=== PATIENT | male | born 1955 | race Caucasian/White ===

== ENCOUNTER 2016-11-16 05:45 | Inpatient (IN) | payer OTHER ==
--- NOTE | 2016-11-15 13:24 | HPE ---
DATE OF SCHEDULED ADMISSION: 11/16/2016 CHIEF COMPLAINT: Sigmoid colon cancer. HISTORY OF PRESENT ILLNESS: The patient is a 61-year-old male who presents with a malignant polyp at 30-35 cm. He has not had any diarrhea. No constipation. No bright red blood per rectum. Essentially there was an adenocarcinoma, this was moderately differentiated in the background of a villous adenoma with positive margins on biopsy. PAST MEDICAL HISTORY: Significant for history of hypertension, history of hypercholesterolemia. MEDICATIONS: Include - Valsartan - hydrochlorothiazide - amlodipine - bisoprolol PHYSICAL EXAMINATION: The patient is a 61-year-old male who looks stated age. HEENT: Reveals an atraumatic, normocephalic head with extraocular movements intact. Pupils are equal and reactive to light. Sclerae nonicteric. Oropharynx clear without exudate or lesions. NECK: Supple without adenopathy. LUNGS: Clear to auscultation without crackles, wheezes or rhonchi. HEART: Regular without murmur. ABDOMEN: Soft, nondistended, nontender. No hepatosplenomegaly is appreciated. EXTREMITIES: Warm, well-perfused. IMPRESSION AND PLAN: 1. The patient has malignant colon cancer. We did do a CT scan for him and this CT scan was negative for adenopathy/metastatic disease. He also had a carcinoembryonic antigen (CEA), this was slightly elevated at 3.9. He has been optimized from a medical standpoint from Dr. Bauer and now presents for additional treatment/for this sigmoid colon cancer. The plan is for a laparoscopic assisted sigmoid colectomy with coloproctostomy. Of course this depends on the location of the polyp if this is indeed in the sigmoid colon, it has been tattooed and it is at 35 cm which suggests mid sigmoid. The patient understands that he will receive some preoperative ureteral stents. He will be placed nothing by mouth. He is given a mechanical as well as antibiotic bowel preparation preoperatively as well as IV antibiotics intraoperatively. He understands the risks as well as benefits associated with the operative intervention, those including but not limited to infection, bleeding, damage to surrounding structures including bowel, bladder, nerve, ureters, kidney, spleen and possible colostomy placement, possible anastomotic leak and wound infections. Also possible need for open operative intervention. The patient understands and would like to proceed with operative intervention as scheduled for 11/16/2016.
[~2016-11-16] VITALS: Ht 170.2 cm; Wt 107.5 kg
[~2016-11-16 05:45] MED LIST: AMLO10TA2 PO; ASPI1TAB PO; BISO5TAB5 PO; VALS160T PO
[2016-11-16] MEDS ORDERED: LevoFLOXacin 500 MG in APPROPRIATE DILUENT 1 EA IV ONE (06:00)
[2016-11-16] MEDS ORDERED: LR 1,000 ML IV SCH ×2 (06:00→14:00)
[2016-11-16] MEDS ORDERED: ERYT25TA PO (06:49)
[2016-11-16] MEDS ORDERED: NEOM50TA PO (06:50)
[2016-11-16] MEDS ORDERED: BUPIVACAINE/EPIN 0.25% 30 ML VIAL As Ordered ONE (07:12)
[2016-11-16] MEDS ORDERED: PROPOFOL 200 MG/20 ML VIAL As Ordered ONE ×2 (09:04→13:02)
[2016-11-16] MEDS ORDERED: LIDOCAINE 2% INJ 100 MG/5 ML SDV (FOR ANES.) As Ordered ONE (09:04)
[2016-11-16] MEDS ORDERED: HYDROmorphone HCL 2 MG/ML 1ML VIAL (J1170) As Ordered ONE (09:04)
[2016-11-16] MEDS ORDERED: fentaNYL 250 MCG/5 ML INJECTION (J3010) As Ordered ONE (09:04)
[2016-11-16] MEDS ORDERED: dexameTHASONE 4 MG/ML 1ML VIAL (J1100) As Ordered ONE (09:04)
[2016-11-16] MEDS ORDERED: ONDANSETRON 4MG/2ML VIAL (J2405) As Ordered ONE (09:04)
[2016-11-16] MEDS ORDERED: ROCURONIUM BROMIDE 50 MG/5 ML VIAL As Ordered ONE ×2 (09:04→10:15)
[2016-11-16] MEDS ORDERED: MIDAZOLAM INJ 2 MG/2 ML VIAL (J2250) As Ordered ONE (09:04)
[2016-11-16] MEDS ORDERED: PHENYLephrine HCL 500 MCG/5 ML (100MCG/ML) SYRINGE (J2370) As Ordered ONE (09:04)
[2016-11-16] MEDS ORDERED: ePHEDrine SULFATE 25 MG/5 ML(5MG/ML) SYRINGE As Ordered ONE ×2 (09:04→09:24)
[2016-11-16] MEDS ORDERED: BUPIVACAINE/EPIN 0.25% 30 ML VIAL XX ONE (09:47)
[2016-11-16] MEDS ORDERED: BUPIVACAINE LIPOSOME/PF 1.3% 20ML (266MG/20ML) VIAL (EXPAREL) As Ordered ONE (11:53)
[2016-11-16] MEDS ORDERED: BUPIVACAINE HCL 0.25% 30 ML VIAL As Ordered ONE (11:53)
[2016-11-16] MEDS ORDERED: KETOROLAC 60 MG/2 ML VIAL (J1885) As Ordered ONE (12:08)
[2016-11-16] MEDS ORDERED: fentaNYL 100 MCG/2 ML INJECTION (J3010) As Ordered ONE (12:31)
[2016-11-16] MEDS ORDERED: NS 1,000 ML IV SCH (12:48)
[2016-11-16] MEDS ORDERED: MORPHINE PCA 1MG/ML 100ML CADD As Ordered ONE (12:50)
[2016-11-16] MEDS ORDERED: NALBUPHINE HCL 10 MG/ML AMP (J2300) IV PRN (13:00)
[2016-11-16] MEDS ORDERED: NALOXONE INJ 0.4 MG/1 ML VIAL (J2310) IV PRN (13:00)
[2016-11-16] MEDS ORDERED: ONDANSETRON 4MG/2ML VIAL (J2405) IV PRN ×3 (13:00→14:00)
[2016-11-16] MEDS ORDERED: MORPHINE PCA 1MG/ML 100ML CADD IV PRN (13:00)
[2016-11-16] MEDS ORDERED: IPRATROPIUM 0.5MG/ALBUTEROL 2.5MG INH SOL UD 3ML (DUONEB)(J7620) NEB PRN (13:00)
[2016-11-16] MEDS ORDERED: METOCLOPRAMIDE INJ 10MG/2ML VIAL (J2765) IV PRN ×2 (13:00→14:00)
[2016-11-16] MEDS ORDERED: diphenhydrAMINE INJ 50MG/ML VIAL (J1200) IV PRN (13:00)
[2016-11-16] MEDS ORDERED: EPIDURAL/PCA KEYS XX PRN (13:00)
[2016-11-16] MEDS ORDERED: PROMETHAZINE INJ 25 MG/ML VIAL (J2550) IV PRN (13:00)
[2016-11-16] MEDS ORDERED: BUPIVACAINE HCL 0.25% 30 ML VIAL XX ONE (13:06)
[2016-11-16] MEDS ORDERED: BUPIVACAINE LIPOSOME/PF 1.3% 20ML (266MG/20ML) VIAL (EXPAREL) XX ONE (13:07)
[2016-11-16] MEDS ORDERED: NALOXONE INJ 0.4 MG/1 ML VIAL (J2310) As Ordered ONE (13:47)
[2016-11-16] MEDS ORDERED: MEPERIDINE INJ 25 MG/ML VIAL (J2175) IV PRN (14:00)
[2016-11-16] MEDS ORDERED: fentaNYL 100 MCG/2 ML INJECTION (J3010) IV PRN (14:00)
[2016-11-16] MEDS: IPRATROPIUM 0.5MG/ALBUTEROL 2.5MG INH SOL UD 3ML (DUONEB)(J7620) NEB SCH ×2 (14:00→19:36)
[2016-11-16] MEDS ORDERED: PERCOCET 5MG/325MG TAB PO PRN (14:00)
--- NOTE | 2016-11-16 14:39 | RO ---
DATE OF PROCEDURE: 11/16/2016 PREPROCEDURE DIAGNOSIS: Sigmoid colon cancer. POSTPROCEDURE DIAGNOSIS: Sigmoid colon cancer. PROCEDURE: 1. Laparoscopic sigmoid colectomy with coloproctostomy. 2. Laparoscopic splenic flexure takedown. SURGEON: Abdirizak Castro MD NUT TAPPER: Dr. Vazquez INDICATIONS FOR NUT TAPPER: Dr. Vazquez provided exposure, retraction and assistance with excision of the sigmoid colon and performed the rectal portion of the anastomosis. ESTIMATED BLOOD LOSS: Minimal. FLUIDS: Crystalloid. BRIEF PROCEDURE SUMMARY: The patient was brought to the operating room and was given general anesthesia. After adequate anesthesia was established, as well as preoperative antibiotics had been given, the patient was prepped and draped in sterile fashion. Next, a supraumbilical incision was made with skin knife. Blunt dissection was carried down to fascia. Fascia was grasped, elevated and a Veress needle placed into the abdominal cavity and insufflated to 15 mm of pressure. A dilating 10 mm trocar was placed at the supraumbilical site and under direct visualization, two 5 mm trocars were placed along the left-hand side and then a 12, as well as 5 mm right lateral trocars were placed. The tattoo in the sigmoid colon actually was quite visible and was seen just in the mid to distal sigmoid colon itself. Next, the white line of Toldt laterally was taken down with harmonic scalpel. This continued inferiorly down to the peritoneal reflection on the left-hand side and this was repeated on the right-hand side. After adequate mobilization laterally with a combination of blunt dissection, as well as the harmonic scalpel, this continued along the loose areolar plane for quite awhile and eventually the dissection continued from the left side. Then I felt that this had been mobilized off the vascular structures in this area quite well. Thus, the right side of the colon needed to be further developed and getting into an avascular plane and was able to get posterior to the rectal vessels. Proximal to the sigmoid vessels, I was able to make a transmesenteric opening with harmonic scalpel and dissected back towards the vessels itself. Inferiorly, once again this was developed such that I could make a nice room through the loose areolar plane and eventually made an opening such that the vessels could be identified better at this time. Also, an opening transmesenteric more distal to the carbon spot was made with harmonic scalpel. The bowel was taken with an echelon 60 green load. Then the mesentery of this was taken with echelon 60 white load. Same was true with the sigmoid vessel, was taken with echelon 60 white load and good hemostasis was achieved. The area was copiously irrigated until clear. Next, dissection continued up along the white line of Toldt to some extent in this area, and then the patient was placed in a head-up position. The patient had a very thickened omentum, much thicker than a typical omentum. I did not see any carcinomatosis. I did not see any other abnormalities. No significant inflammation, although I had concerns that he may have had some episode of diverticulitis in the past in the transverse colon. In any case, the omentum was taken off the transverse colon along the avascular plane using the Harmonic scalpel but because of the significant thickening of the colon and adhesions to the colon itself, it was difficult to develop an easy plane in this area. Eventually, the splenic flexure was mobilized with the harmonic scalpel and the colon was mobilized off Gerota's. This continued inferiorly. Once the splenic flexure was adequately mobilized and the colon off the Gerota's fascia/kidney was adequately mobilized, the clips were placed on the bowel and that seemed to reach the pelvis adequately and without tension. Then an abdominal incision was made with skin knife. Electrocautery was used to cut through dermis, underlying subcutaneous tissue down through the fascia. The portion of bowel was brought out through this incision. Mesentery was taken with an echelon white load and an EEA stapler 29 was placed in the proximal portion of the bowel. The bowel was resected using a JUD stapler and the anvil was brought out just proximal to the anastomosis. Next, this was returned to the abdominal cavity and the midline was closed with a separate closure and closed with #1 Vicryl in a running manner. The abdomen was reinsufflated at this time and an end-to-end anastomosis was created under direct visualization. This was irrigated copiously until clear and was insufflated under water revealing no air leak. The right lower quadrant 12 mm trocar site was closed with a Ananda #0 Vicryl and a #19 Mohan-Valerio was left in the bed of dissection in the pelvis. All incisions were closed with padilla after the midline was irrigated until clear, and the patient was awakened, extubated, brought to recovery room awake, alert and hemodynamically stable. Sponge and needle counts correct times two.
[2016-11-16] MEDS ORDERED: ALBUTEROL SULFATE 2.5 MG/0.5 ML INH NEB SOLN As Ordered ONE (14:59)
[2016-11-16 15:55] VITALS: BP 115/69
[2016-11-16 16:25] VITALS: BP 117/66
[2016-11-16] MEDS: LR 1,000 ML IV SCH (17:05)
[2016-11-16 17:25] VITALS: BP 112/62
[2016-11-16] MEDS ORDERED: KETOROLAC 30 MG/ML VIAL (J1885) IV PRN (18:00)
[2016-11-16 18:25] VITALS: BP 124/68
[2016-11-16 19:25] VITALS: BP 131/76
[2016-11-16 20:30] VITALS: BP 127/68
[2016-11-16] MEDS: ALVIMOPAN 12 MG CAPSULE (ENTEREG) PO SCH (21:11)
[2016-11-17] VITALS (7 sets, daily range): BP systolic 113–156; BP diastolic 64–82; O2SAT 96
[2016-11-17] MEDS: LR 1,000 ML IV SCH ×4 (01:58→20:41)
[2016-11-17] MEDS: IPRATROPIUM 0.5MG/ALBUTEROL 2.5MG INH SOL UD 3ML (DUONEB)(J7620) NEB SCH ×4 (02:00→19:20)
[2016-11-17] MEDS: LevoFLOXacin 500 MG in APPROPRIATE DILUENT 1 EA IV SCH (06:20)
[2016-11-17 06:46] LABS: MEAN CORPUSCULAR HEMOGLOBIN 30.5 pg (27.0-33.0); MEAN CORPUSCULAR HGB CONC 34.8 g/dl (32.0-36.5); MEAN CORPUSCULAR VOLUME 87.6 fl (80.0-96.0); RED CELL DISTRIBUTION WIDTH 13.7 % (11.5-14.5); WHITE BLOOD COUNT 18.8 K/mm3 (4.0-10.0)
[2016-11-17 07:03] LABS: ANION GAP 8 MEQ/L (8-16); BLOOD UREA NITROGEN 18 MG/DL (7-18); CALCIUM LEVEL 8.1 MG/DL (8.8-10.2); CARBON DIOXIDE LEVEL 27 MEQ/L (21-32); CHLORIDE LEVEL 106 MEQ/L (98-107); CREATININE FOR GFR 1.04 MG/DL (0.70-1.30); GLOMERULAR FILTRATION RATE > 60.0 (>49); GLUCOSE, FASTING 135 MG/DL (80-110); POTASSIUM SERUM 4.7 MEQ/L (3.5-5.1); SODIUM LEVEL 141 MEQ/L (136-145)
[2016-11-17] MEDS: amLODIPine 10 MG TAB PO SCH (09:00)
[2016-11-17] MEDS: BISOPROLOL FUMARATE 5 MG TAB PO SCH (09:00)
[2016-11-17] MEDS: VALSARTAN 80 MG TAB (DIOVAN) PO SCH (09:00)
[2016-11-17] MEDS: PANTOPRAZOLE 40MG INJ (PROTONIX) (C9113) IV SCH (09:30)
[2016-11-17] MEDS: ALVIMOPAN 12 MG CAPSULE (ENTEREG) PO SCH ×2 (09:30→20:24)
--- NOTE | 2016-11-17 14:01 | RO ---
DATE OF PROCEDURE: 11/16/2016 PREPROCEDURE DIAGNOSIS: Colon cancer. POSTPROCEDURE DIAGNOSIS: Colon cancer. PROCEDURE: Cystoscopy, bilateral ureteral stent placement. SURGEON: Raphael Burton MD MANAGER COUNCIL: None. ANESTHESIA: General. OPERATIVE INDICATIONS: This is a 61-year-old male who was brought to the operating room today by Dr. Castro for a planned bowel resection for colon cancer. Dr. Castro has requested we place stents preoperatively in case there is a potential ureteral injury during the case and also to help identify the ureters. DESCRIPTION OF PROCEDURE: The patient was brought to the operating room, and general anesthesia was induced. Prophylactic antibiotics were infused. He was then placed in the dorsal lithotomy position and prepped and draped in the usual sterile fashion. A rigid cystoscope was inserted into the urethral meatus and advanced into the bladder. Once that was done, two separate open- ended ureteral catheters were advanced up both collecting systems. The ureteral catheters went up both the right and the left collecting systems without any difficulty. Of note, a ureteral catheter marked red was placed up the right collecting system, and a ureteral catheter marked blue was advanced up the left collecting system. Once this was done, the cystoscope was withdrawn , and a Mo catheter was inserted into the bladder. The balloon was inflated with 10 mL of sterile water, and the catheter was connected to gravity drainage. Both of the ureteral catheters were secured to the Mo catheter with a 0 silk ties. This marked the conclusion of my portion of the procedure. The procedure was then handed over to Dr. Castro to complete his portion of the procedure. ESTIMATED BLOOD LOSS: 0 mL. COMPLICATIONS: None. SPECIMENS: None. PLAN: Assuming there is no concern for ureteral injury, the ureteral stents will be removed at the end of the procedure. [facility]
[2016-11-18] VITALS (7 sets, daily range): BP systolic 127–174; BP diastolic 76–89
[2016-11-18] MEDS: IPRATROPIUM 0.5MG/ALBUTEROL 2.5MG INH SOL UD 3ML (DUONEB)(J7620) NEB SCH ×4 (00:01→19:52)
[2016-11-18] MEDS: LR 1,000 ML IV SCH ×2 (00:25→09:34)
[2016-11-18] MEDS: LevoFLOXacin 500 MG in APPROPRIATE DILUENT 1 EA IV SCH (05:03)
[2016-11-18 07:04] LABS: MEAN CORPUSCULAR HEMOGLOBIN 29.7 pg (27.0-33.0); MEAN CORPUSCULAR HGB CONC 32.8 g/dl (32.0-36.5); MEAN CORPUSCULAR VOLUME 90.7 fl (80.0-96.0); WHITE BLOOD COUNT 11.6 K/mm3 (4.0-10.0)
[2016-11-18 07:29] LABS: ANION GAP 6 MEQ/L (8-16); BLOOD UREA NITROGEN 16 MG/DL (7-18); CALCIUM LEVEL 8.2 MG/DL (8.8-10.2); CARBON DIOXIDE LEVEL 30 MEQ/L (21-32); CHLORIDE LEVEL 105 MEQ/L (98-107); CREATININE FOR GFR 0.93 MG/DL (0.70-1.30); GLOMERULAR FILTRATION RATE > 60.0 (>49); GLUCOSE, FASTING 103 MG/DL (80-110); POTASSIUM SERUM 4.2 MEQ/L (3.5-5.1); SODIUM LEVEL 141 MEQ/L (136-145)
[2016-11-18] MEDS: PANTOPRAZOLE 40MG INJ (PROTONIX) (C9113) IV SCH (08:58)
[2016-11-18] MEDS: BISOPROLOL FUMARATE 5 MG TAB PO SCH (08:58)
[2016-11-18] MEDS: ALVIMOPAN 12 MG CAPSULE (ENTEREG) PO SCH ×2 (08:58→21:05)
[2016-11-18] MEDS: amLODIPine 10 MG TAB PO SCH (08:59)
[2016-11-18] MEDS ORDERED: INFLUENZA QUADRIVALENT PF VACCINE 0.5ML SYRINGE/VIAL (90686) IM ONE (09:00)
[2016-11-18] MEDS: VALSARTAN 80 MG TAB (DIOVAN) PO SCH ×2 (09:00→21:05)
[2016-11-18] MEDS ORDERED: PNEUMOCOCCAL VACCINE 0.5ML SYRINGE(90732) PNEUMOVAX 23 IM ONE (09:00)
[2016-11-18] MEDS: SIMETHICONE 80 MG CHEW TAB PO SCH ×4 (09:34→21:06)
[2016-11-19] VITALS: BP 129/81
[2016-11-19] MEDS: IPRATROPIUM 0.5MG/ALBUTEROL 2.5MG INH SOL UD 3ML (DUONEB)(J7620) NEB SCH ×4 (01:22→19:13)
[2016-11-19 04:00] VITALS: BP 130/83
[2016-11-19] MEDS: LevoFLOXacin 500 MG in APPROPRIATE DILUENT 1 EA IV SCH (06:41)
[2016-11-19 06:53] LABS: MEAN CORPUSCULAR HEMOGLOBIN 29.7 pg (27.0-33.0); MEAN CORPUSCULAR HGB CONC 32.6 g/dl (32.0-36.5); MEAN CORPUSCULAR VOLUME 90.9 fl (80.0-96.0); RED CELL DISTRIBUTION WIDTH 13.8 % (11.5-14.5); WHITE BLOOD COUNT 12.1 K/mm3 (4.0-10.0)
[2016-11-19 07:15] LABS: ANION GAP 10 MEQ/L (8-16); BLOOD UREA NITROGEN 18 MG/DL (7-18); CALCIUM LEVEL 8.8 MG/DL (8.8-10.2); CARBON DIOXIDE LEVEL 27 MEQ/L (21-32); CHLORIDE LEVEL 104 MEQ/L (98-107); CREATININE FOR GFR 0.98 MG/DL (0.70-1.30); GLOMERULAR FILTRATION RATE > 60.0 (>49); GLUCOSE, FASTING 96 MG/DL (80-110); SODIUM LEVEL 141 MEQ/L (136-145)
[2016-11-19 08:00] VITALS: BP 129/78
[2016-11-19] MEDS: PANTOPRAZOLE 40MG INJ (PROTONIX) (C9113) IV SCH (09:30)
[2016-11-19] MEDS: SIMETHICONE 80 MG CHEW TAB PO SCH ×4 (09:30→21:07)
[2016-11-19] MEDS: BISOPROLOL FUMARATE 5 MG TAB PO SCH (09:31)
[2016-11-19] MEDS: amLODIPine 10 MG TAB PO SCH (09:32)
[2016-11-19] MEDS: ALVIMOPAN 12 MG CAPSULE (ENTEREG) PO SCH ×2 (09:32→21:07)
[2016-11-19] MEDS ORDERED: MORPHINE 2 MG/ML 1ML SYRINGE IV PRN (10:45)
[2016-11-19] MEDS ORDERED: NORCO, ANEXSIA 5/325MG TABLET (HYDROcodone/ACETAMINOPHEN) PO PRN (10:45)
[2016-11-19 12:00] VITALS: BP 126/76
[2016-11-19 16:00] VITALS: BP 125/75
[2016-11-19 20:00] VITALS: BP 142/85
[2016-11-19] MEDS: VALSARTAN 80 MG TAB (DIOVAN) PO SCH (21:07)
[2016-11-20] VITALS: BP 162/90
[2016-11-20] MEDS: IPRATROPIUM 0.5MG/ALBUTEROL 2.5MG INH SOL UD 3ML (DUONEB)(J7620) NEB SCH ×4 (02:00→19:44)
[2016-11-20 04:00] VITALS: BP 162/86
[2016-11-20] MEDS: LevoFLOXacin 500 MG in APPROPRIATE DILUENT 1 EA IV SCH (05:39)
[2016-11-20 07:01] LABS: MEAN CORPUSCULAR HEMOGLOBIN 29.9 pg (27.0-33.0); MEAN CORPUSCULAR VOLUME 87.8 fl (80.0-96.0); RED CELL DISTRIBUTION WIDTH 13.6 % (11.5-14.5); WHITE BLOOD COUNT 11.8 K/mm3 (4.0-10.0)
[2016-11-20 07:22] LABS: ANION GAP 10 MEQ/L (8-16); BLOOD UREA NITROGEN 19 MG/DL (7-18); CALCIUM LEVEL 8.6 MG/DL (8.8-10.2); CARBON DIOXIDE LEVEL 26 MEQ/L (21-32); CHLORIDE LEVEL 105 MEQ/L (98-107); CREATININE FOR GFR 0.88 MG/DL (0.70-1.30); GLOMERULAR FILTRATION RATE > 60.0 (>49); GLUCOSE, FASTING 98 MG/DL (80-110); POTASSIUM SERUM 3.9 MEQ/L (3.5-5.1); SODIUM LEVEL 141 MEQ/L (136-145)
[2016-11-20 08:00] VITALS: BP 131/80
[2016-11-20] MEDS: ALVIMOPAN 12 MG CAPSULE (ENTEREG) PO SCH ×2 (08:12→20:41)
[2016-11-20] MEDS: PANTOPRAZOLE 40MG INJ (PROTONIX) (C9113) IV SCH (08:12)
[2016-11-20] MEDS: BISOPROLOL FUMARATE 5 MG TAB PO SCH (08:12)
[2016-11-20] MEDS: amLODIPine 10 MG TAB PO SCH (08:12)
[2016-11-20] MEDS: SIMETHICONE 80 MG CHEW TAB PO SCH ×4 (08:12→20:41)
[2016-11-20] MEDS: NORCO, ANEXSIA 5/325MG TABLET (HYDROcodone/ACETAMINOPHEN) PO PRN ×3 (08:16→22:32)
[2016-11-20 12:00] VITALS: BP 136/81
[2016-11-20] MEDS: ENOXAPARIN 40 MG/0.4 ML SYRINGE (J1650) SC SCH (12:54)
[2016-11-20 16:00] VITALS: BP 130/75
[2016-11-20 20:00] VITALS: BP 142/79
[2016-11-20] MEDS: VALSARTAN 80 MG TAB (DIOVAN) PO SCH (20:47)
[2016-11-21] VITALS: BP 138/88
[2016-11-21] MEDS: IPRATROPIUM 0.5MG/ALBUTEROL 2.5MG INH SOL UD 3ML (DUONEB)(J7620) NEB SCH ×3 (07:54→19:34)
[2016-11-21 08:00] VITALS: BP 152/86
[2016-11-21] MEDS: ALVIMOPAN 12 MG CAPSULE (ENTEREG) PO SCH ×2 (08:07→21:27)
[2016-11-21] MEDS: PANTOPRAZOLE 40MG TAB (PROTONIX) PO SCH (08:07)
[2016-11-21] MEDS: amLODIPine 10 MG TAB PO SCH (08:08)
[2016-11-21] MEDS: BISOPROLOL FUMARATE 5 MG TAB PO SCH (08:10)
[2016-11-21] MEDS: ENOXAPARIN 40 MG/0.4 ML SYRINGE (J1650) SC SCH (08:11)
[2016-11-21] MEDS: SIMETHICONE 80 MG CHEW TAB PO SCH ×4 (08:11→21:26)
[2016-11-21] MEDS: NORCO, ANEXSIA 5/325MG TABLET (HYDROcodone/ACETAMINOPHEN) PO PRN ×2 (08:14→14:26)
[2016-11-21 12:00] VITALS: BP 138/83
[2016-11-21 16:00] VITALS: BP 113/72
[2016-11-21 20:00] VITALS: BP 148/78
[2016-11-21] MEDS: VALSARTAN 80 MG TAB (DIOVAN) PO SCH (21:26)
[2016-11-22] VITALS: BP 130/80
[2016-11-22 03:58] VITALS: BP 157/84
[2016-11-22 06:52] LABS: BASO # 0.1 K/mm3 (0.0-0.2); BASO % 1.1 % (0.0-1.0); EOS # 0.4 K/mm3 (0.0-0.50); EOS % 3.6 % (0.0-3.0); LARGE UNSTAINED CELL # 0.3 K/mm3 (0.0-0.4); LARGE UNSTAINED CELL % 2.5 % (0.0-4.0); LYMPH # 2.3 K/mm3 (1.5-4.5); LYMPH % 16.4 % (24.0-44.0); MEAN CORPUSCULAR HEMOGLOBIN 29.7 pg (27.0-33.0); MEAN CORPUSCULAR HGB CONC 33.7 g/dl (32.0-36.5); MEAN CORPUSCULAR VOLUME 88.3 fl (80.0-96.0); MONO # 0.7 K/mm3 (0.0-0.8); NEUTROPHILS # 8.5 K/mm3 (1.8-7.7); NEUTROPHILS % 70.3 % (36.0-66.0); PLATELET COUNT, AUTOMATED 245 k/mm3 (150-450); RED CELL DISTRIBUTION WIDTH 13.7 % (11.5-14.5); WHITE BLOOD COUNT 12.1 K/mm3 (4.0-10.0)
[2016-11-22 07:15] LABS: ANION GAP 7 MEQ/L (8-16); BLOOD UREA NITROGEN 21 MG/DL (7-18); CALCIUM LEVEL 8.5 MG/DL (8.8-10.2); CARBON DIOXIDE LEVEL 30 MEQ/L (21-32); CHLORIDE LEVEL 104 MEQ/L (98-107); CREATININE FOR GFR 1.04 MG/DL (0.70-1.30); GLOMERULAR FILTRATION RATE > 60.0 (>49); GLUCOSE, FASTING 89 MG/DL (80-110); POTASSIUM SERUM 4.1 MEQ/L (3.5-5.1); SODIUM LEVEL 141 MEQ/L (136-145)
[2016-11-22 08:00] VITALS: BP 145/94
[2016-11-22] MEDS: BISOPROLOL FUMARATE 5 MG TAB PO SCH (08:05)
[2016-11-22] MEDS: PANTOPRAZOLE 40MG TAB (PROTONIX) PO SCH (08:05)
[2016-11-22] MEDS: SIMETHICONE 80 MG CHEW TAB PO SCH ×4 (08:05→21:45)
[2016-11-22] MEDS: ENOXAPARIN 40 MG/0.4 ML SYRINGE (J1650) SC SCH (08:06)
[2016-11-22] MEDS: amLODIPine 10 MG TAB PO SCH (08:06)
[2016-11-22] MEDS: ALVIMOPAN 12 MG CAPSULE (ENTEREG) PO SCH ×2 (08:06→21:44)
[2016-11-22] MEDS: IPRATROPIUM 0.5MG/ALBUTEROL 2.5MG INH SOL UD 3ML (DUONEB)(J7620) NEB SCH ×4 (08:39→23:33)
[2016-11-22 12:00] VITALS: BP 137/78
[2016-11-22] MEDS: NORCO, ANEXSIA 5/325MG TABLET (HYDROcodone/ACETAMINOPHEN) PO PRN ×2 (13:58→22:12)
[2016-11-22 16:00] VITALS: BP 108/67
[2016-11-22 20:00] VITALS: BP 130/69
[2016-11-22] MEDS: VALSARTAN 80 MG TAB (DIOVAN) PO SCH (21:45)
[2016-11-23] VITALS: BP 129/80
[2016-11-23 04:00] VITALS: BP 154/86
[2016-11-23 06:45] LABS: MEAN CORPUSCULAR HGB CONC 33.5 g/dl (32.0-36.5); MEAN CORPUSCULAR VOLUME 89.5 fl (80.0-96.0); RED CELL DISTRIBUTION WIDTH 12.9 % (11.5-14.5); WHITE BLOOD COUNT 9.5 K/mm3 (4.0-10.0)
[2016-11-23 06:59] LABS: ANION GAP 7 MEQ/L (8-16); BLOOD UREA NITROGEN 17 MG/DL (7-18); CALCIUM LEVEL 8.1 MG/DL (8.8-10.2); CARBON DIOXIDE LEVEL 31 MEQ/L (21-32); CHLORIDE LEVEL 103 MEQ/L (98-107); GLOMERULAR FILTRATION RATE > 60.0 (>49); GLUCOSE, FASTING 90 MG/DL (80-110); SODIUM LEVEL 141 MEQ/L (136-145)
[2016-11-23] MEDS: IPRATROPIUM 0.5MG/ALBUTEROL 2.5MG INH SOL UD 3ML (DUONEB)(J7620) NEB SCH (07:22)
[2016-11-23 08:00] VITALS: BP 137/83
[2016-11-23] MEDS: ENOXAPARIN 40 MG/0.4 ML SYRINGE (J1650) SC SCH (09:00)
[2016-11-23] MEDS: SIMETHICONE 80 MG CHEW TAB PO SCH (09:01)
[2016-11-23 09:02] VITALS: BP 137/83
[2016-11-23] MEDS: ALVIMOPAN 12 MG CAPSULE (ENTEREG) PO SCH (09:02)
[2016-11-23] MEDS: PANTOPRAZOLE 40MG TAB (PROTONIX) PO SCH (09:02)
[2016-11-23] MEDS: amLODIPine 10 MG TAB PO SCH (09:02)
[2016-11-23] MEDS: BISOPROLOL FUMARATE 5 MG TAB PO SCH (09:02)
[2016-11-23] MEDS ORDERED: COLA100C PO (11:29)
[2016-11-23] MEDS ORDERED: MIRA33504 PO (11:29)
[2016-11-23] MEDS ORDERED: NORC5TAB PO (11:29)
[2016-11-23] MEDS ORDERED: DOCUSATE SODIUM 100 MG CAP PO ONE (12:00)
== END 2016-11-23 12:07 | disposition home or self-care (01) | DRG 330 ==
LOC: M OR 05:45 → M PED 15:45
PROVIDERS: ADMIT Surgery; ATTEND Surgery
PROC: 0DTN4ZZ Resection of Sigmoid Colon, Percutaneous Endoscopic Approach (ICD-10-PCS; principal; 2016-11-16 07:30)
PROC: 0T784DZ Dilation of Bilateral Ureters with Intraluminal Device, Percutaneous Endoscopic Approach (ICD-10-PCS; 2016-11-16 07:30)
DX: C18.7 Malignant neoplasm of sigmoid colon (principal); K56.7 Ileus, unspecified; K91.870 Postprocedural hematoma of a digestive system organ or structure following a digestive system procedure; I11.9 Hypertensive heart disease without heart failure; E78.00 Pure hypercholesterolemia, unspecified; E66.9 Obesity, unspecified; Z87.891 Personal history of nicotine dependence; Z68.37 Body mass index [BMI] 37.0-37.9, adult; Z79.899 Other long term (current) drug therapy

== ENCOUNTER → 2016-12-21 | Outpatient (REF) | payer OTHER ==
[~2016-12-21] MED LIST changes: +COLA100C PO; +ERYT25TA PO; +MIRA33504 PO; +NEOM50TA PO; +NORC5TAB PO
== END | disposition home or self-care (01) ==
LOC: M LAB REF 16:55
PROVIDERS: ATTEND Internal Medicine Medical Oncology
DX: C18.7 Malignant neoplasm of sigmoid colon (principal)

== ENCOUNTER → 2017-02-24 | Outpatient (CLI) | payer OTHER ==
[~2017-02-24] MED LIST changes: -COLA100C PO; +COLA100C3 PO; +NORC1TAB4 PO; -NORC5TAB PO
--- NOTE | 2017-02-26 10:53 | SLEEPCENT ---
DATE OF PROCEDURE: 02/24/2017 ORDERED BY: DEANNA Lala Nocturnal polysomnography was performed due to concern for the obstructive sleep apnea syndrome in this patient with a history of excessive somnolence and nonrestorative sleep. 9 hours of data were reviewed. There were 301 minutes of sleep identified. Sleep latency was normal at 12 minutes. Rapid eye movement (REM) sleep onset was delayed at 283 minutes. Sleep architecture showed fragmentation, poor progression. There was a prolonged period of wake after initial sleep onset resulting in lowest sleep efficiency of 56%. The patient's electrocardiogram (EKG) showed a sinus rhythm with wandering baseline. Average heart rate 74 beats per minute. EEG showed fairly normal waveforms for awake and sleep. There were 347 respiratory events identified of 10 seconds in duration or greater for an apnea hypopnea index of 69.2. The events were not exclusive to sleep stage nor body posture. They were primarily obstructive. Arousals from respiratory events occurred 23.7 times per hour and oxygen desaturations were seen into the low 70s. Remaining of measures of sleep physiology showed limb activity but few arousals. IMPRESSION: Severe obstructive sleep apnea syndrome (G47.33). Apnea hypopnea index of 69.2 with desaturations into the 70s RECOMMENDATION: The patient should be encouraged to return to the sleep disorder center at his earliest convenience for pressure therapy. In the interim, alcohol and sedative avoidance should be practiced and caution exercised during the operation of motor vehicles.
== END ==
LOC: M SLEEP 19:36
PROVIDERS: ATTEND Nurse Practitioner Adult Health
DX: G47.33 Obstructive sleep apnea (adult) (pediatric) (principal)

== ENCOUNTER → 2017-03-26 | Outpatient (CLI) | payer OTHER ==
--- NOTE | 2017-03-28 14:57 | SLEEPCENT ---
DATE OF PROCEDURE: 03/26/2017 REQUESTING PROVIDER: Cristina Puentes NP INTERPRETATION: Nocturnal polysomnography was performed for the titration of pressure therapy in this patient with a history of obstructive sleep apnea syndrome, apnea-hypopnea index of 69. For testing, a Mobiplex Eson nasal mask of medium size was used, 4 cm of water pressure were applied to the circuit and the lights were extinguished. 7 hours and 11 minutes of data were reviewed. There were 409 minutes of sleep identified. Sleep latency was mildly prolonged at 13.5 minutes. Rapid eye movement (REM) latency was short at 55 minutes. Sleep architecture improved with optimal pressure therapy. There were four REM periods appreciated. Overall sleep efficiency 95.9%. The patient's electrocardiogram (EKG) showed a sinus rhythm with an average heart rate of 68 beats per minute. Electroencephalogram (EEG) showed reasonably normal waveforms for awake and sleep. Respiratory events were fully palliated with a CPAP to a pressure of +8. Remaining measures of sleep physiology were normal. IMPRESSION: Obstructive sleep apnea syndrome (G47.33). RECOMMENDATIONS: Nightly use of pressure therapy at 8 cm of water.
== END ==
LOC: M SLEEP 19:45
PROVIDERS: ATTEND Nurse Practitioner Adult Health
DX: G47.33 Obstructive sleep apnea (adult) (pediatric) (principal)

== ENCOUNTER → 2017-04-04 | Outpatient (REF) | payer OTHER | LOC: M LAB REF 16:44 | PROVIDERS: ATTEND Internal Medicine Medical Oncology | DX: C18.9 Malignant neoplasm of colon, unspecified (principal) ==

== ENCOUNTER → 2017-04-20 | Outpatient (REF) | payer OTHER | LOC: M LAB REF 12:49 | PROVIDERS: ATTEND Internal Medicine Medical Oncology | DX: C18.9 Malignant neoplasm of colon, unspecified (principal) ==

== ENCOUNTER → 2017-05-03 | Outpatient (CLI) | payer OTHER ==
--- NOTE | 2017-05-05 19:31 | REP ---
Whole body PET CT scan: Scanning is performed from skull base to the upper thighs. Comparison is the CT of the abdomen and pelvis dated 11/04/2016. Neck and supraclavicular areas: There are no hypermetabolic foci. Chest: There are no hypermetabolic foci. Abdomen, pelvis and upper thighs: There are no hypermetabolic foci. Impression: There are no hypermetabolic foci. The study is performed with 10 mCi of F 18 F D G. Signed by Ru Sanchez MD 05/05/2017 07:22 P
== END ==
LOC: M PLARAD 10:11
PROVIDERS: ATTEND Internal Medicine Medical Oncology
DX: C18.9 Malignant neoplasm of colon, unspecified (principal)
CPT/HCPCS: 78815; A9552

== ENCOUNTER → 2017-07-18 | Outpatient (REF) | payer OTHER ==
[~2017-07-18] MED LIST changes: -COLA100C3 PO; +COLA100C5 PO
== END ==
LOC: M LAB REF 12:50
PROVIDERS: ATTEND Internal Medicine Medical Oncology
DX: C18.9 Malignant neoplasm of colon, unspecified (principal)

== ENCOUNTER 2017-08-23 09:25 | Outpatient (CLI) | payer OTHER ==
[~2017-08-23] VITALS: Ht 170.2 cm; Wt 104.3 kg
[~2017-08-23 09:25] MED LIST changes: +PROPOFOL 200 MG/20 ML VIAL As Ordered ONE
[2017-08-23] MEDS ORDERED: NS 1,000 ML IV ONE (09:30)
--- NOTE | 2017-08-23 10:37 | ROOR ---
Patient Name: Srini Pat Procedure Date: 08/23/2017 10:03 AM Date of : 1955 Age: 62 Room: [facility] Gender: Male Note Status: Finalized Procedure: Total Colonoscopy to Cecum + Cold Snare Polypectomy + Hemoclips Indications: High risk colon cancer surveillance: Personal history of colon cancer Providers: Da Chau MD Referring MD: Alayna Bauer DO Requesting Provider: Medicines: Monitored Anesthesia Care Complications: No immediate complications. Procedure: Pre-Anesthesia Assessment: - The heart rate, respiratory rate, oxygen saturations, blood pressure, adequacy of pulmonary ventilation, and response to care were monitored throughout the procedure. The Colonoscope was introduced through the anus and advanced to the cecum, identified by appendiceal orifice and ileocecal valve. The colonoscopy was performed without difficulty. The patient tolerated the procedure well. The quality of the bowel preparation was fair. Findings: The perianal and digital rectal examinations were normal. Non-bleeding internal hemorrhoids were found during retroflexion. The hemorrhoids were small and Grade I (internal hemorrhoids that do not prolapse). Multiple small and large-mouthed diverticula were found in the recto-sigmoid colon, sigmoid colon and descending colon. A small polyp was found in the transverse colon. The polyp was sessile. The polyp was removed with a cold snare. Resection and retrieval were complete. A medium polyp was found at 40 cm proximal to the anus. The polyp was pedunculated. The polyp was removed with a cold snare. Resection and retrieval were complete. To prevent bleeding after the polypectomy, one hemostatic clip was successfully placed (MR conditional). There was no bleeding at the end of the procedure. Two sessile polyps were found in the rectum. The polyps were diminutive in size. These polyps were removed with a cold snare. Resection and retrieval were complete. To prevent bleeding after the polypectomy, one hemostatic clip was successfully placed (MR conditional). There was no bleeding at the end of the procedure. The exam was otherwise without abnormality on direct and retroflexion views. There was evidence of a prior end-to-end colo-colonic anastomosis at 30 cm proximal to the anus. This was patent and was characterized by healthy appearing mucosa. The anastomosis was traversed. Impression: - Preparation of the colon was fair. - Non-bleeding internal hemorrhoids. - Diverticulosis in the recto-sigmoid colon, in the sigmoid colon and in the descending colon. - One small polyp in the transverse colon, removed with a cold snare. Resected and retrieved. - One medium polyp at 40 cm proximal to the anus, removed with a cold snare. Resected and retrieved. Clip (MR conditional) was placed. - Two diminutive polyps in the rectum, removed with a cold snare. Resected and retrieved. Clip (MR conditional) was placed. - The examination was otherwise normal on direct and retroflexion views. - Patent end-to-end colo-colonic anastomosis, characterized by healthy appearing mucosa. - The exam was otherwise normal to the cecum. Recommendation: - Patient has a contact number available for emergencies. The signs and symptoms of potential delayed complications were discussed with the patient. Return to normal activities tomorrow. Written discharge instructions were provided to the patient. - Discharge patient to home. - Continue present medications. - Await pathology results. - Telephone GI clinic for pathology results in 1 week. - Repeat colonoscopy in 1 year for surveillance based on pathology results. - Return to referring physician. - The findings and recommendations were discussed with the patient's family. Da Chau MD Da Chau MD 08/23/2017 10:37:23 AM This report has been signed electronically. Number of Addenda: 0 Note Initiated On: 08/23/2017 10:03 AM Estimated Blood Loss: Estimated blood loss: none.
[2017-08-23 10:50] VITALS: BP 115/79
== END 2017-08-23 11:00 | disposition home or self-care (01) ==
LOC: M OPP 09:25
PROVIDERS: ATTEND Internal Medicine Gastroenterology
DX: Z08 Encounter for follow-up examination after completed treatment for malignant neoplasm (principal); Z85.038 Personal history of other malignant neoplasm of large intestine; D12.3 Benign neoplasm of transverse colon; D12.5 Benign neoplasm of sigmoid colon; K62.1 Rectal polyp; Z98.0 Intestinal bypass and anastomosis status; K57.30 Diverticulosis of large intestine without perforation or abscess without bleeding; K64.0 First degree hemorrhoids; I10 Essential (primary) hypertension; E78.5 Hyperlipidemia, unspecified; G47.30 Sleep apnea, unspecified; Z87.891 Personal history of nicotine dependence; Z79.82 Long term (current) use of aspirin; Z79.899 Other long term (current) drug therapy; Z80.0 Family history of malignant neoplasm of digestive organs

== ENCOUNTER → 2017-08-30 | Outpatient (REF) ==
[~2017-08-30] MED LIST changes: -PROPOFOL 200 MG/20 ML VIAL As Ordered ONE
[2017-08-30 15:49] LABS: MEAN CORPUSCULAR HEMOGLOBIN 29.9 pg (27.0-33.0); MEAN CORPUSCULAR HGB CONC 34.1 g/dl (32.0-36.5); MEAN CORPUSCULAR VOLUME 87.6 fl (80.0-96.0); RED CELL DISTRIBUTION WIDTH 12.9 % (11.5-14.5)
[2017-08-30 16:34] LABS: ALKALINE PHOSPHATASE 81 U/L (45-117); AST/SGOT 41 U/L (15-37); BILIRUBIN,TOTAL 0.5 MG/DL (0.2-1.0); BLOOD UREA NITROGEN 15 MG/DL (7-18); CREATININE FOR GFR 1.05 MG/DL (0.70-1.30); GLOMERULAR FILTRATION RATE > 60.0 (>49)
[2017-08-31 11:01] LABS: HEPATITIS B SURFACE ANTIBODY NEGATIVE (POSITIVE)
== END ==
LOC: M LAB 14:03
PROVIDERS: ATTEND Family Medicine
DX: Z02.89 Encounter for other administrative examinations (principal)

== ENCOUNTER → 2017-10-18 | Outpatient (REF) | payer OTHER | LOC: M LAB REF 12:44 | PROVIDERS: ATTEND Internal Medicine Medical Oncology | DX: C18.9 Malignant neoplasm of colon, unspecified (principal) ==

== ENCOUNTER → 2017-11-22 | Outpatient (REF) | payer OTHER ==
[2017-11-22 12:50] LABS: PHOSPHORUS LEVEL 3.9 MG/DL (2.5-4.9)
== END ==
LOC: M LAB REF 11:53
DX: Z79.899 Other long term (current) drug therapy (principal)

== ENCOUNTER → 2018-01-02 | Outpatient (REF) | payer OTHER ==
[2018-01-02 20:57] LABS: PHOSPHORUS LEVEL 3.8 MG/DL (2.5-4.9)
== END ==
LOC: M LAB REF 19:08
DX: B35.1 Tinea unguium (principal); Z79.899 Other long term (current) drug therapy
CPT/HCPCS: 84100

== ENCOUNTER → 2018-01-18 | Outpatient (REF) | payer OTHER ==
[2018-01-20 11:03] LABS: CARCINOEMBRYONIC ANTIGEN 3.6 NG/ML (<2.5)
== END ==
LOC: M LAB REF 13:55
DX: C18.9 Malignant neoplasm of colon, unspecified (principal)

== ENCOUNTER → 2018-04-28 | Outpatient (REF) | payer OTHER ==
[2018-04-28 13:45] LABS: CARCINOEMBRYONIC ANTIGEN 3.4 NG/ML (<2.5)
== END ==
LOC: M LAB REF 13:19
DX: C18.9 Malignant neoplasm of colon, unspecified (principal)

== ENCOUNTER → 2018-05-16 | Outpatient (CLI) | payer OTHER | LOC: M PLARAD 10:27 | DX: C18.9 Malignant neoplasm of colon, unspecified (principal) | CPT/HCPCS: 78815 ==

== ENCOUNTER 2018-10-17 11:37 | Day surgery (SDC) | payer OTHER ==
[2018-10-17] MEDS: NS 1,000 ML IV (11:50)
[2018-10-17] MEDS ORDERED: LIDOCAINE 2% INJ 100 MG/5 ML SDV (FOR ANES.) As Ordered (13:12)
[2018-10-17] MEDS ORDERED: PROPOFOL 200 MG/20 ML VIAL As Ordered ×2 (13:12→13:51)
== END 2018-10-17 14:46 | disposition home or self-care (01) ==
LOC: M OPP 11:37
DX: Z12.11 Encounter for screening for malignant neoplasm of colon (principal); D12.0 Benign neoplasm of cecum; D12.2 Benign neoplasm of ascending colon; K64.0 First degree hemorrhoids; K57.30 Diverticulosis of large intestine without perforation or abscess without bleeding; I10 Essential (primary) hypertension; R06.83 Snoring; Z80.0 Family history of malignant neoplasm of digestive organs; Z85.038 Personal history of other malignant neoplasm of large intestine; Z98.0 Intestinal bypass and anastomosis status; Z79.899 Other long term (current) drug therapy; Z79.82 Long term (current) use of aspirin; Z87.891 Personal history of nicotine dependence; Z98.890 Other specified postprocedural states
CPT/HCPCS: 45380

== ENCOUNTER → 2020-04-11 | Outpatient (CLI) | payer OTHER ==
[~2020-04-11] MED LIST changes: -AMLO10TA2 PO; +AMLO10TA5 PO; -ASPI1TAB PO; +ASPI81TA26 PO; +BISO5TAB14 PO; -BISO5TAB5 PO; +GASTROGRAFIN SOLUTION 30ML (Q9963) As Ordered ONE; +ISOVUE-370 76% 100ML VIAL As Ordered ONE; +NEOM500T PO; -NEOM50TA PO; -NORC1TAB4 PO; +NORC1TAB7 PO; -VALS160T PO; +VALS160T2 PO
--- NOTE | 2020-04-11 10:53 | REP ---
CT CHEST WITH IV CONTRAST: TECHNIQUE: Axial contrast-enhanced images from the thoracic inlet to the upper abdomen using 100 mL Isovue-370 intravenous contrast material with multiplanar reformations. No pulmonary nodule or infiltrate is seen in either lung. There is no evidence of axillary, mediastinal, or hilar adenopathy. There is no thoracic aortic aneurysm or dissection. Heart is normal in size. There is no pleural or pericardial effusion. There are mild degenerative changes of the spine with no compression deformity. IMPRESSION: No active pulmonary disease. Electronically Signed by Ru Fuentes MD 04/11/2020 11:09 A
--- NOTE | 2020-04-11 10:55 | REP ---
CT ABDOMEN AND PELVIS WITH ORAL AND IV CONTRAST: TECHNIQUE: Axial contrast enhanced images from the lung bases to the pubic symphysis using 100 mL Isovue-370 intravenous contrast material with multiplanar reformations. COMPARISON: 11/04/2016 Liver demonstrates no mass. Spleen is normal in size with no intrinsic abnormality. No adrenal mass or pancreatic mass is seen. The kidneys demonstrate no hydronephrosis or mass. There is mild atherosclerotic calcification of the abdominal aorta without aneurysm. There is no adenopathy seen. There is no free air or free fluid. I see no bowel wall thickening. Suture line is seen in the region of the sigmoid colon. Urinary bladder is mildly distended and grossly unremarkable. IMPRESSION: No evidence of mass or adenopathy. No free air or free fluid. Electronically Signed by Ru Fuentes MD 04/11/2020 11:09 A
== END ==
LOC: M RAD 08:03
PROVIDERS: ATTEND Internal Medicine Medical Oncology
DX: R97.0 Elevated carcinoembryonic antigen [CEA] (principal); Z85.038 Personal history of other malignant neoplasm of large intestine
CPT/HCPCS: 71260; 74177; Q9963; Q9967

== ENCOUNTER → 2022-03-05 | Outpatient (CLI) | payer OTHER ==
[~2022-03-05] MED LIST changes: -AMLO10TA5 PO; +AMLO1TAB25 PO; +CHLO125TA PO; +ERY-250T24 PO; -ERYT25TA PO; -GASTROGRAFIN SOLUTION 30ML (Q9963) As Ordered ONE; -ISOVUE-370 76% 100ML VIAL As Ordered ONE; +VALS1TAB67 PO; +VITMTA PO
== END ==
LOC: M LABSMTC 09:34
PROVIDERS: ATTEND Anesthesiology
DX: Z01.812 Encounter for preprocedural laboratory examination (principal); Z20.822 Contact with and (suspected) exposure to COVID-19

== ENCOUNTER 2022-03-10 09:12 | Day surgery (SDC) | payer OTHER ==
[~2022-03-10] VITALS: Ht 170.2 cm; Wt 104.3 kg
[~2022-03-10 09:12] MED LIST changes: +NS 1,000 ML IV ONE
[2022-03-10] MEDS ORDERED: LIDOCAINE 2% 100MG/5ML SDV (FOR ANES.) As Ordered ONE (10:46)
[2022-03-10] MEDS ORDERED: propofoL 200 MG/20 ML VIAL As Ordered ONE (10:46)
[2022-03-10 11:25] VITALS: BP 115/72
== END 2022-03-10 11:27 | disposition home or self-care (01) ==
LOC: M OPP 09:12
PROVIDERS: ATTEND Internal Medicine Gastroenterology
DX: Z12.11 Encounter for screening for malignant neoplasm of colon (principal); Z85.038 Personal history of other malignant neoplasm of large intestine; Z86.010 Personal history of colon polyps; K57.30 Diverticulosis of large intestine without perforation or abscess without bleeding; K64.0 First degree hemorrhoids; Z98.0 Intestinal bypass and anastomosis status; E11.9 Type 2 diabetes mellitus without complications; G47.30 Sleep apnea, unspecified; Z79.82 Long term (current) use of aspirin; Z79.899 Other long term (current) drug therapy